=== PATIENT | male | born 1950 | race Caucasian/White ===

== ENCOUNTER 2016-10-17 12:37 | Emergency (ER) | payer MEDICARE ==
[2016-10-17 12:45] VITALS: BP 139/89
--- NOTE | 2016-10-17 14:13 | RAD ---
HISTORY: Pain down right leg COMPARISONS: None TECHNIQUE: Multiple contiguous axial CT scans were obtained of the lumbar spine without intravenous contrast, with coronal and sagittal multiplanar reformations. FINDINGS: SPINAL CANAL: Evaluation of the central canal is limited on CT technique; however, there is no obvious canalicular mass or epidural hemorrhage. ALIGNMENT: The alignment is normal. VERTEBRAL BODIES: There is anterolateral marginal osteophyte formation JOINTS: There is facet hypertrophy change MUSCULATURE: Unremarkable INTERVERTEBRAL DISCS: There is diffuse loss of intervertebral disc height throughout the spine. AXIAL IMAGES: T12-L1: There is no osseous neural foraminal narrowing or central canal stenosis. L1-L2: There is no osseous neural foraminal narrowing or central canal stenosis. L2-L3: There is mild disc bulge. There is no osseous neural foraminal narrowing or central canal stenosis. L3-L4: There is mild disc bulge. There is no osseous neural foraminal area or central canal stenosis. L4-L5: There is broad-based disc bulge. There is mild bilateral neural foraminal narrowing. There is no significant central canal stenosis. L5-S1: There is broad-based disc bulge. There is mild bilateral neural foraminal narrowing. There is no significant central canal stenosis. SOFT TISSUES: The visualized soft tissues of the abdomen are unremarkable. OTHER: There is osteoarthritis of the SI joints IMPRESSION: 1. DEGENERATIVE DISC DISEASE AND OSTEOARTHRITIS. 2. THERE IS NO SIGNIFICANT OSSEOUS CENTRAL CANAL STENOSIS. THERE IS MILD NEURAL FORAMINAL NARROWING AT L4-L5 AND L5-S1
--- NOTE | 2016-10-17 15:01 | ED ---
Back Pain - HPI Summary HPI Summary: 66M presents with right leg pain for 2 months. He states the past three days the pain has gotten a lot worst. He has not been able to get into his primary so he decided to come here. He states occasionally he gets pain into his back. He has numbness on the lateral aspect of his lower leg. He had a negative u/ s a month ago. He denies any recent immobilization, surgeries, travel, history of blood clots, or family history of blood clots. He states occasionally he has neck pain on left side of neck. He denies any loss of bowel or bladder or saddle anaesthesia. He has been taking ibuprofen for pain with some relief. He states he feels unsteady on his feet. He denies any injury to the area. He denies any swelling to the area. - History of Current Complaint Chief Complaint: EDExtremityLower Stated Complaint: RT LEG PAIN Time Seen by Provider: 10/17/16 13:33 Pain Intensity: 4 - Allergies/Home Medications Allergies/Adverse Reactions: Allergies Allergy/AdvReac Type Severity Reaction Status Date / Time Penicillins [PCN] Allergy Unknown Verified 10/17/16 12:47 Reaction Details PMH/Surg Hx/FS Hx/Imm Hx Endocrine/Hematology History: Denies: Hx Anticoagulant Therapy, Hx Diabetes Cardiovascular History: Reports: Hx Hypertension Infectious Disease History: No Infectious Disease History: Denies: Traveled Outside the [place] in Last 30 Days - Family History Known Family History: Positive: Hypertension - Social History Alcohol Use: Occasionally Substance Use Type: Reports: None Smoking Status (MU): Never Smoked Tobacco Review of Systems Negative: Fever Negative: Chest Pain Negative: Shortness Of Breath Positive: Myalgia - leg pain right All Other Systems Reviewed And Are Negative: Yes Physical Exam Triage Information Reviewed: Yes Vital Signs On Initial Exam: Initial Vitals Temp Pulse Resp BP Pulse Ox 97.6 F 68 16 139/89 97 10/17/16 12:41 10/17/16 12:41 10/17/16 12:41 10/17/16 12:41 10/17/16 12:41 Vital Signs Reviewed: Yes Appearance: Positive: Well-Appearing Skin: Positive: Warm, Dry Head/Face: Positive: Normal Head/Face Inspection Eyes: Positive: Normal, Conjunctiva Clear Respiratory/Lung Sounds: Positive: Clear to Auscultation, Breath Sounds Present Cardiovascular: Positive: Normal, RRR Musculoskeletal: Positive: Strength/ROM Intact - back, Other - nontender back, pos SLR right, good pulses, capillary refill < 2 secs, good strength lower extremity Neurological: Positive: Reflexes Intact - patella Diagnostics - Vital Signs Vital Signs Temp Pulse Resp BP Pulse Ox 10/17/16 12:45 97.6 F 66 16 139/89 96 10/17/16 12:41 97.6 F 68 16 139/89 97 - Laboratory Lab Statement: Any lab studies that have been ordered have been reviewed, and results considered in the medical decision making process. - CT back CT Interpretation: Positive (See Comments) - IMPRESSION: 1. DEGENERATIVE DISC DISEASE AND OSTEOARTHRITIS. 2. THERE IS NO SIGNIFICANT OSSEOUS CENTRAL CANAL STENOSIS. THERE IS MILD NEURAL FORAMINAL NARROWING AT L4-L5 AND L5-S1 CT Interpretation Completed By: Radiologist Back Pain Course/Dx - Course Course Of Treatment: 66M presents with right leg pain for 2 months. He states the past three days the pain has gotten a lot worst. He has not been able to get into his primary so he decided to come here. He has numbness on the lateral aspect of his lower leg. He had a negative u/s a month ago. He denies any recent immobilization, surgeries, travel, history of blood clots, or family history of blood clots so do not suspect new DVT. He has been taking ibuprofen for pain with some relief. He denies any injury to the area. nontender back, pos SLR. suspect pain is sciatica and related to back so due to no imaging of back got CT which shows degenerative disk disease and some narrowing of foramina. patient says he wants neurosurgery referral which gave but explained better if follow up with primary to start PT etc. will treat with prednisone and flexeril to see if have any improvement. patient understands and agrees with plan - Diagnoses Differential Diagnosis/HQI/PQRI: Positive: Herniated Disc, Strain, Sprain Provider Diagnoses: Sciatica Discharge - Discharge Plan Condition: Stable Disposition: HOME Prescriptions: Cyclobenzaprine TAB* [Flexeril 10 MG TAB*] 10 mg PO TID PRN #9 tab PRN Reason: Pain Methylprednisolone [Medrol Dosepak 4 MG*] 4 mg PO .SEE STEVEN INSTRUCTION #1 packet Patient Education Materials: Sciatica (ED) Referrals: Charlotte Veliz MD [Primary Care Provider] - Adis Ramirez MD [Medical Doctor] - Additional Instructions: Follow directions on package for Medrol pack Take muscle relaxers three times a day for 3 days Use Tylenol for pain every 6 hours ice/heat area, move as much as possible Follow up with primary within 5 days Return to ED if develop any new or worsening symptoms
== END 2016-10-17 15:41 | disposition home or self-care (01) ==
LOC: ED 12:37
DX: M54.30 Sciatica, unspecified side (principal); M51.36 Other intervertebral disc degeneration, lumbar region; M19.90 Unspecified osteoarthritis, unspecified site; M79.604 Pain in right leg
CPT/HCPCS: 72131; 99282

== ENCOUNTER 2018-03-22 15:15 | Emergency (ER) | payer MEDICARE ==
[2018-03-22] MEDS ORDERED: Tetan/Diph/Pertus SYR(Tdap)* 0.5 ML SYR(BOOSTRIX) use SYR IM ONE (15:23)
--- NOTE | 2018-03-22 16:30 | ED ---
Upper Extremity Pain - HPI Summary HPI Summary: [id number] patient presents with left hand injury to multiple fingers. 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 He has lacerations to his fourth and fifth digits along the dorsal aspect. He is able to flex and extend denies numbness tingling or weakness. He does have pain with flexion of the fourth digit. He was working with metal and so he could have foreign bodies retained in his skin. He is unsure of last tetanus vaccine. He took some aspirin prior to arrival does not want anything for pain at this time. No other injuries as a result of this event. - History of Current Complaint Chief Complaint: EDLacSutureRecheck Stated Complaint: LT HAND LAC Time Seen by Provider: 03/22/18 15:17 Hx Obtained From: Patient, Family/Supervisor [employer] - - Allergies/Home Medications Allergies/Adverse Reactions: Allergies Allergy/AdvReac Type Severity Reaction Status Date / Time Penicillins Allergy Unknown Verified 03/22/18 15:22 Reaction Details PMH/Surg Hx/FS Hx/Imm Hx Previously Healthy: Yes Endocrine/Hematology History: Reports: Hx Diabetes Denies: Hx Anticoagulant Therapy, Hx Unexplained Bleeding, Autoimmune Disease Cardiovascular History: Denies: Hx Hypertension, Hx Pacemaker/ICD History: Denies: Hx Renal Disease Sensory History: Denies: Hx Hearing Aid Psychiatric History: Denies: Hx Panic Disorder - Surgical History Surgery Procedure, Year, and Place: KIDNEY STONES - Immunization History Immunizations Up to Date: Unable to Obtain/Confirm - unsure of last tetanus vaccine - nothing on file here Infectious Disease History: No Infectious Disease History: Denies: Hx of Known/Suspected MRSA, Traveled Outside the [place] in Last 30 Days - Family History Known Family History: Positive: Hypertension - Social History Lives: With Family Alcohol Use: Occasionally Hx Substance Use: No Substance Use Type: Reports: None Hx Tobacco Use: No Smoking Status (MU): Never Smoked Tobacco Review of Systems Constitutional: Negative Positive: no symptoms reported Positive: Arthralgia Skin: Other - lacs Neurological: Negative Psychological: Normal All Other Systems Reviewed And Are Negative: Yes Physical Exam Triage Information Reviewed: Yes Vital Signs On Initial Exam: Initial Vitals Temp Pulse Resp BP Pulse Ox 97.1 F 68 20 137/87 94 03/22/18 15:19 03/22/18 15:19 12/01/18 15:19 03/22/18 15:19 03/22/18 15:19 Vital Signs Reviewed: Yes Appearance: Positive: Well-Appearing, No Pain Distress, Well-Nourished Skin: Positive: Warm, Skin Color Reflects Adequate Perfusion - oblique, jagged lacerations over 4th and 5th dorsal aspect of the proximal phalanges on Lt hand - bloody but no active bleeding - no nerves, vessels or tendons observed Head/Face: Positive: Normal Head/Face Inspection Eyes: Positive: EOMI ENT: Positive: Hearing grossly normal Respiratory/Lung Sounds: Positive: Breath Sounds Present Cardiovascular: Positive: Pulses are Symmetrical in both Upper and Lower Extremities Musculoskeletal: Positive: Strength/ROM Intact, Pain @ - 4th phalange pain w/ flexion into contact manager position; full extension w/ strength of both affected digits Neurological: Positive: Normal, Sensory/Motor Intact, Alert, Oriented to Person Place, Time, CN Intact II-III Psychiatric: Positive: Normal Procedures - Laceration/Wound Repair 1 Location: upper extremity - Lt 4th digit - dorsal aspect, prox phalange Description: Linear - w/ focal skin abrasion Anesthesia: Digital, 1.0%, Lido Length, Depth and Shape: 2cm x 3mm - jagged edges, 2 vessels bleeding - ligated with 5-0 fast absorbing plain gut - hemodynamically stable Betadine Prep?: Yes Irrigated w/ Saline (ccs): 100 - soaked in hibaclens w/ water, then irrigated w / sterile saline Laceration/Wound Explored: foreign body removed - multiple flecks of metal particulate removed from wound Closure: Multilayer - as above Suture Type: Other - 5-0 ethilon Number of Sutures: 4 Layer Closure?: Yes Sterile Dressing Applied?: Yes - triple anbx + gauze + splint + gauze wrap - pt tolerate well 2 Location: upper extremity - Lt 5th digit dorsal proximal phalange Description: Linear Anesthesia: Digital, 1.0%, Lido Length, Depth and Shape: 0.5x 0.5 cm flap - 3.5mm deep Betadine Prep?: Yes Irrigated w/ Saline (ccs): 100 - soaked in hibaclens w/ saline then irrigated w / sterile saline Laceration/Wound Explored: foreign body removed - flecks of metal removed Closure: Single Layer Suture Type: Other - ethilon 5-0 Number of Sutures: 3 Layer Closure?: No Sterile Dressing Applied?: Yes - triple anbx + gauze + splint + gauze wrap - pt tolerate well Diagnostics - Vital Signs Vital Signs Temp Pulse Resp BP Pulse Ox 03/22/18 15:19 97.1 F 68 20 137/87 94 - Laboratory Lab Statement: Any lab studies that have been ordered have been reviewed, and results considered in the medical decision making process. Course/Dx - Course Course Of Treatment: X-ray: #1. Nondisplaced fracture of the fourth proximal phalanx #2. Soft tissue injury and small metallic foreign bodies in soft tissue of the fourth and fifth fingers as described. Wound cleaned, repaired and finger splinted. Keflex and boostrix provided here w/ rx for home, education , and f/u discussed. WARNED about danger s/sx for infection - pt and agree w/ plan. - Diagnoses Provider Diagnoses: Laceration of multiple sites of hand and fingers, Open fracture of finger of left hand Discharge - Sign-Out/Discharge Documenting (check all that apply): Patient Departure - Discharge Plan Condition: Stable Disposition: HOME Prescriptions: Cephalexin CAP* [Keflex CAP*] 500 mg PO QID #34 cap Patient Education Materials: Finger Fracture (ED), Finger Laceration (ED), Care For Your Stitches (ED) Referrals: Aiden Osborne MD [Medical Doctor] - Additional Instructions: You have an open fracture of your fourth finger. This has been cleaned today but started on antibiotics to prevent infection. However please note the risk of infection with this type of injury is higher. * If you develop redness, swelling, streaking, purulent drainage, fevers or chills, seek medical attention sooner or return to the emergency department In the meantime, keep dressing and splints clean and dry and in place for the next 48 hours. After that time, follow-up with hand specialist (Saturday or Saturday). Call Saturday to schedule an appointment. The black sutures will need to be removed once your wounds have healed - the hand specialist will remove these when they are ready to come out. You additionally have 2 absorbable sutures in your 4th finger - these will dissolve and do not need to be removed. Keep hand elevated, ice, and take ibuprofen as needed for pain. Avoid using this hand until cleared by hand specialist. - Billing Disposition and Condition Condition: STABLE Disposition: Home
[2018-03-22] MEDS ORDERED: Lidocaine 1% INJ* 10 MG/ML 30 ML SDV ONE (16:52)
[2018-03-22] MEDS ORDERED: C ephalexin 500MG #6 TAB PREPK 500 MG CAP PO ONE (18:26)
[2018-03-22 18:57] VITALS: BP 148/93
== END 2018-03-22 18:56 | disposition home or self-care (01) ==
LOC: ED 15:15
DX: S62.645B Nondisplaced fracture of proximal phalanx of left ring finger, initial encounter for open fracture (principal); S61.227A Laceration with foreign body of left little finger without damage to nail, initial encounter; W31.89XA Contact with other specified machinery, initial encounter; Y92.9 Unspecified place or not applicable; Z23 Encounter for immunization; Z88.0 Allergy status to penicillin
CPT/HCPCS: 12041; 90471; 90715; 99282; A9270-GY

== ENCOUNTER 2018-11-08 08:12 | Emergency (ER) | payer MEDICARE ==
[2018-11-08 08:25] VITALS: BP 160/84
--- NOTE | 2018-11-08 08:44 | UC ---
Skin Complaint HPI - HPI Summary HPI Summary: Saturday of this week the pt started feeling chills. As the week progressed, he started having a fever with body aches. No known tick bites. Pt developed a rash below right axilla which he noticed this morning. - History of Current Complaint Chief Complaint: UCGeneralIllness Time Seen by Provider: 11/08/18 08:27 Stated Complaint: CHILLS RED AREA ON SIDE Hx Obtained From: Patient Onset/Duration: Gradual Onset Skin Exposure Onset/Duration: Days Ago Timing: Constant Onset Severity: Mild Current Severity: Moderate Pain Intensity: 6 Location: Other - Right side of chest, under right arm Character: Redness Aggravating Factor(s): Nothing Alleviating Factor(s): Nothing - Allergy/Home Medications Allergies/Adverse Reactions: Allergies Allergy/AdvReac Type Severity Reaction Status Date / Time Penicillins Allergy Unknown Verified 11/08/18 08:24 Reaction Details Home Medications: Home Medications Ibuprofen 800 mg PO ONCE PRN 11/08/18 [History Confirmed 11/08/18] PMH/Surg Hx/FS Hx/Imm Hx Previously Healthy: Yes Endocrine History: Diabetes Other History Of: Negative For: Anticoagulant Therapy - Surgical History Surgical History: Yes Surgery Procedure, Year, and Place: KIDNEY STONES - Family History Known Family History: Positive: Hypertension - Social History Alcohol Use: None Substance Use Type: None Smoking Status (MU): Never Smoked Tobacco Review of Systems All Other Systems Reviewed And Are Negative: Yes Constitutional: Positive: Fever, Chills Skin: Positive: Rash - Rash noted today Is Patient Immunocompromised?: No Physical Exam Triage Information Reviewed: Yes Appearance: Well-Appearing, No Pain Distress, Well-Nourished Vital Signs: Initial Vital Signs Temp 102.5 F 11/08/18 08:19 Pulse 84 11/08/18 08:19 Resp 18 11/08/18 08:19 BP 160/84 11/08/18 08:19 Pulse Ox 94 11/08/18 08:19 Vital Signs Reviewed: Yes Eyes: Positive: Conjunctiva Clear ENT: Positive: Hearing grossly normal, Pharynx normal, TMs normal, Uvula midline Neck: Positive: Supple, Nontender, No Lymphadenopathy Respiratory: Positive: Lungs clear, Normal breath sounds, No respiratory distress, No accessory muscle use Cardiovascular: Positive: RRR, No Murmur, Pulses Normal, Brisk Capillary Refill Abdomen Description: Positive: Nontender, No Organomegaly, Soft. Negative: CVA Tenderness (R), CVA Tenderness (L) Bowel Sounds: Positive: Present Musculoskeletal: Positive: Strength Intact, ROM Intact Neurological: Positive: Alert, Muscle Tone Normal Psychological Exam: Normal Skin: Positive: Rashes - Red macular rash, not visibly a bull's eye, right side of chest, mid axillary line measuring approx 10 cm in length X 6cm. Course/Dx - Course Course Of Treatment: I believe pt has Lyme Disease and will treat accordingly. We discussed the importance of follow up either in the ER or with his PCP. - Diagnoses Provider Diagnosis: Lyme disease Discharge - Sign-Out/Discharge Documenting (check all that apply): Patient Departure All imaging exams completed and their final reports reviewed: No Studies - Discharge Plan Condition: Fair Disposition: HOME Prescriptions: DOXYcycline CAP(*) [DOXYcycline 100MG CAP(*)] 100 mg PO BID 14 Days #28 cap Patient Education Materials: Lyme Disease (ED) Referrals: Charlotte Veliz MD [Primary Care Provider] - Additional Instructions: May take Tylenol every 4 hours and alternate with Motrin every 8 hours for fever. No dairy products, no antacids, no multivitamins 2 hours before you take the Doxycycline and 2 hours after you take the Doxycycline, however, you need to take the Doxycycline with food. Go to the ER for any worsening symptoms and go if you still have a high fever in 2-3 days. Follow up with your primary care provider before the 2 weeks of antibiotic is finished because he/she may want to continue the medicine for another week. - Billing Disposition and Condition Condition: FAIR Disposition: Home
== END 2018-11-08 08:40 | disposition home or self-care (01) ==
LOC: UCEAST 08:12
DX: A69.20 Lyme disease, unspecified (principal); E11.9 Type 2 diabetes mellitus without complications; Z88.0 Allergy status to penicillin
CPT/HCPCS: 99212; G0463

== ENCOUNTER 2019-04-28 18:41 | Emergency (ER) | payer MEDICARE ==
[2019-04-28] MEDS ORDERED: Ibuprofen TAB* 600 MG PO ONE (18:58)
--- NOTE | 2019-04-28 19:02 | ED ---
Upper Extremity Pain - HPI Summary HPI Summary: The patient is a 68 y/o M presenting to [facility] accompanied by with a chief complaint of right shoulder pain onset over the last 2-3 weeks with gradual worsening. He reports that the pain suddenly began without any trauma or fall, but it has since become worse and more constant. Currently, the sharp pain is rated 6/10 in severity. There is decreased ROM in lifting the shoulder secondary to pain. He denies numbness. He has used Aspirin and Advil to mild relief of the pain, with last Aspirin this morning. 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 He has never had this pain before. PMHx: DM, arthritis in hip (Dr. Cho). Former smoker, no EtOH, no substance use. Medications reviewed. Allergies noted. - History of Current Complaint Chief Complaint: EDShoulderClavicleInj Stated Complaint: R ARM PAIN PER PT Time Seen by Provider: 04/28/19 18:49 Hx Obtained From: Patient Mechanism Of Injury: Unknown Onset/Duration: Started Weeks Ago - 2-3, Still Present Timing: Constant Severity Initially: Mild Severity Currently: Moderate Pain Location: Shoulder - right Aggravating Factor(s): Movement, Lifting Alleviating Factor(s): Rest Associated Signs & Symptoms: Negative: Numbness/Tingling Related History: Dominant Hand Right - Allergies/Home Medications Allergies/Adverse Reactions: Allergies Allergy/AdvReac Type Severity Reaction Status Date / Time Penicillins Allergy Unknown Verified 04/28/19 18:47 Reaction Details PMH/Surg Hx/FS Hx/Imm Hx Endocrine/Hematology History: Reports: Hx Diabetes Denies: Hx Anticoagulant Therapy, Hx Unexplained Bleeding Cardiovascular History: Denies: Hx Hypertension, Hx Pacemaker/ICD History: Denies: Hx Renal Disease Musculoskeletal History: Reports: Hx Arthritis - right hip Sensory History: Denies: Hx Hearing Aid Psychiatric History: Denies: Hx Panic Disorder - Surgical History Surgical History: Yes Surgery Procedure, Year, and Place: KIDNEY STONES Infectious Disease History: No Infectious Disease History: Denies: Hx of Known/Suspected MRSA, Traveled Outside the [place] in Last 30 Days - Family History Known Family History: Positive: Hypertension - Social History Alcohol Use: None Hx Substance Use: No Substance Use Type: Reports: None Hx Tobacco Use: No Smoking Status (MU): Former Smoker Review of Systems Positive: Arthralgia - right shoulder, Decreased ROM - right shoulder lifting Negative: Numbness All Other Systems Reviewed And Are Negative: Yes Physical Exam - Summary Physical Exam Summary: Constitutional: Well-developed, Well-nourished, Alert. (-) Distressed Skin: Warm, Dry HENT: Normocephalic; Atraumatic Eyes: Conjunctiva normal Neck: Musculoskeletal ROM normal neck. (-) JVD, (-) Stridor, (-) Tracheal deviation Cardio: Rhythm regular, rate normal, Heart sounds normal; Intact distal pulses; Radial pulses are 2+ and symmetric. (-) Murmur Pulmonary/Chest wall: Effort normal. (-) Respiratory distress, (-) Wheezes, (-) Rales Abd: Soft, (-) tenderness, (-) Distension, (-) Guarding, (-) Rebound Musculoskeletal: (-) Edema, Bony tenderness of the right shoulder, Pain with abduction at 90 degrees, FROM of shoulder, Radial pulse 2+ Lymph: (-) Cervical adenopathy Neuro: Alert, Oriented x3 Psych: Mood and affect Normal Triage Information Reviewed: Yes Vital Signs On Initial Exam: Initial Vitals Temp Pulse Resp BP Pulse Ox 97.6 F 60 16 176/94 96 04/28/19 18:43 04/28/19 18:43 04/28/19 18:43 04/28/19 18:43 04/28/19 18:43 Vital Signs Reviewed: Yes Procedures - Sedation Patient Received Moderate/Deep Sedation with Procedure: No Diagnostics - Vital Signs Vital Signs Temp Pulse Resp BP Pulse Ox 04/28/19 18:43 97.6 F 60 16 176/94 96 - Laboratory Lab Statement: Any lab studies that have been ordered have been reviewed, and results considered in the medical decision making process. - Radiology R Shoulder XR Radiology Interpretation Completed By: ED Physician Summary of Radiographic Findings: No acute fracture. ED physician has reviewed and interpreted this report. Pending official read. Re-Evaluation - Re-Evaluation First Eval Re-Evaluation Time: 19:25 Comment: We discussed results and plan for discharge. Course/Dx - Course Course Of Treatment: Patient is here pain in his right shoulder and pain with abduction of his arm. Patient has no dramatic events and is overall well- appearing. Patient had a negative x-ray for any fracture or underlying bony mass. Patient is likely suffering from a rotator cuff strain. Patient is given orthopedic surgery follow-up. - Diagnoses Provider Diagnoses: Rotator cuff strain Discharge ED - Sign-Out/Discharge Documenting (check all that apply): Patient Departure - Patient will be discharged home. - Discharge Plan Condition: Stable Disposition: HOME Patient Education Materials: Rotator Cuff Injury (ED) Referrals: Charlotte Veliz MD [Primary Care Provider] - 3 Days Aiden Osborne MD [Medical Doctor] - 3 Days Additional Instructions: Take Motrin 600mg every 6 hours for pain. You can supplement that with Tylenol. You need to see an orthopedic surgeon to have your rotator cuff evaluated. Follow up with Dr. Osborne from orthopedics. - Billing Disposition and Condition Condition: STABLE Disposition: Home - Attestation Statements Document Initiated by Birdie: Yes Documenting Scribe: Cheryl Sethi Provider For Whom Birdie is Documenting (Include Credential): Dr. Alonzo Madsen MD Scribe Attestation: Cheryl Torres scribed for Dr. Alonzo Madsen MD on 04/28/19 at 2103. Scribe Documentation Reviewed: Yes Provider Attestation: The documentation as recorded by the Cheryl goode accurately reflects the service I personally performed and the decisions made by me, Dr. Alonzo Madsen MD Status of Scribtara Document: Viewed
[2019-04-28 19:41] VITALS: BP 135/87
== END 2019-04-28 19:33 | disposition home or self-care (01) ==
LOC: ED 18:41
DX: S16.1XXA Strain of muscle, fascia and tendon at neck level, initial encounter (principal); M25.511 Pain in right shoulder; E11.9 Type 2 diabetes mellitus without complications; Z87.891 Personal history of nicotine dependence; X58.XXXA Exposure to other specified factors, initial encounter; Y92.9 Unspecified place or not applicable
CPT/HCPCS: 99281; A9270-GY